=== PATIENT | male | born 1960 | race Caucasian/White ===

== ENCOUNTER 2020-12-05 20:08 | Inpatient (IN) | payer OTHER, MEDICAID ==
[2020-12-05] MEDS ORDERED: Aspirin Chewable 81 MG TAB ONE (20:56)
[2020-12-05] MEDS ORDERED: Nitroglycerin 2% Ointment 1 INCH/1 GM Packet ONE (20:57)
[2020-12-05] MEDS ORDERED: Lidocaine Viscous Sol 2% 15 ml UD Cup ONE (22:38)
[2020-12-05] MEDS ORDERED: Mag-Al Plus 1200 MG/1200 MG/120 MG/30 ML UDCUP ONE (22:38)
[2020-12-05] MEDS ORDERED: Guaifenesin DM 100-10/5 ML UDCUP PO PRN (23:58)
[2020-12-05] MEDS ORDERED: Senokot S 8.6-50 MG TAB PO PRN (23:58)
[2020-12-05] MEDS ORDERED: Calcium Carbonate 500 MG ChewTAB PO PRN (23:58)
[2020-12-06] MEDS ORDERED: Nitroglycerin 2% Ointment 1 INCH/1 GM Packet TOP PRN
[2020-12-06] MEDS ORDERED: Nitroglycerin 0.4 MG TAB (25 Tab Bottle) SL PRN (00:04)
[2020-12-06] MEDS ORDERED: Dextrose 5% in Water 1,000 ML IV PRN (00:05)
[2020-12-06] MEDS ORDERED: Dextrose 50% Abboject 50 ML SYRINGE SLOW IVP PRN (00:05)
[2020-12-06 02:01] VITALS: BMI 21.6
[2020-12-06] MEDS ORDERED: Pantoprazole 40 MG VIAL ONE (02:03)
[2020-12-06] MEDS: Morphine 2 MG/ML VIAL SLOW IVP PRN ×4 (02:05→22:21)
[2020-12-06] MEDS: Pantoprazole 40 MG VIAL IVP SCH ×2 (02:09→13:15)
[2020-12-06] MEDS: HYDROcodone/Acetaminophen 5/325 mg Tablet PO PRN ×3 (04:20→20:59)
[2020-12-06 04:56] LABS: %Basophils 0.7 % (0.0-2.0); %Eosinophils 0.7 % (0.0-6.0); %Lymphocytes 18.3 % (18.0-47.0); %Monocytes 8.2 % (0.0-10.0); %Neutrophils 71.9 % (40.0-75.0); Hemoglobin 6.5 g/dL (13.5-17.5); Platelet Count 116 10x3/uL (150-450); RBC Distribution Width 20.2 % (11.5-14.5); Red Blood Cell (RBC) Count 2.46 10x6/uL (4.32-5.72); White Blood Cell (WBC) Count 5.5 10x3/uL (3.5-10.5)
[2020-12-06 04:59] LABS: Anion Gap 13 mmol/L (10-20); BUN (Urea Nitrogen) 9 mg/dL (8.4-25.7); Calc. Creatinine Clearance 79 mL/min (70-130); Carbon Dioxide 23 mmol/L (23-31); Chloride 105 mmol/L (98-107); Potassium 3.8 mmol/L (3.5-5.1); Sodium 137 mmol/L (136-145)
[2020-12-06 05:00] LABS: Albumin 2.8 g/dL (3.4-4.8); Bilirubin, Total 1.4 mg/dL (0.2-1.2); Calcium 8.7 mg/dL (7.8-10.44); Globulin 3.4 g/dL (2.4-3.5); Glucose 155 mg/dL (80-115); Protein, Total 6.2 g/dL (5.8-8.1)
[2020-12-06 05:01] LABS: ALT (SGPT) 111 U/L (8-55); AST (SGOT) 117 U/L (5-34); Alkaline Phosphatase 1304 U/L (40-110); Lipase 14 U/L (8-78)
[2020-12-06 05:09] LABS: #Eosinphils 0.1 10x3/uL (0.0-0.5); #Monocytes 0.3 10x3/uL (0.0-1.1); #Neutrophils 2.6 10x3/uL (1.5-8.4); %Basophils 0.7 % (0.0-2.0); %Eosinophils 1.4 % (0.0-6.0); %Lymphocytes 26.7 % (18.0-47.0); %Monocytes 8.2 % (0.0-10.0); %Neutrophils 62.5 % (40.0-75.0); Hemoglobin 6.1 g/dL (13.5-17.5); Mean Corpuscular HGB CONC 32.1 g/dL (32.0-36.0); Mean Corpuscular Hemoglobin 26.1 pg (27.0-33.0); Mean Corpuscular Volume 81.2 fl (81.2-95.1); Platelet Count 103 10x3/uL (150-450); RBC Distribution Width 20.2 % (11.5-14.5); Red Blood Cell (RBC) Count 2.34 10x6/uL (4.32-5.72); White Blood Cell (WBC) Count 4.2 10x3/uL (3.5-10.5)
[2020-12-06 05:15] LABS: PTT 23.9 sec (22.0-33.0); Prothrombin Time 11.2 sec (9.5-12.1)
[2020-12-06 05:25] LABS: ALT (SGPT) 112 U/L (8-55); AST (SGOT) 117 U/L (5-34); Albumin 2.6 g/dL (3.4-4.8); Alkaline Phosphatase 1211 U/L (40-110); Anion Gap 11 mmol/L (10-20); BUN (Urea Nitrogen) 11 mg/dL (8.4-25.7); Bilirubin, Total 1.2 mg/dL (0.2-1.2); Calc. Creatinine Clearance 87 mL/min (70-130); Calcium 8.5 mg/dL (7.8-10.44); Carbon Dioxide 25 mmol/L (23-31); Cardiac Risk 2.3 (Less than 4.5); Chloride 108 mmol/L (98-107); Cholesterol 120 mg/dl (< 200 Desired); Globulin 3.1 g/dL (2.4-3.5); Glucose 78 mg/dL (80-115); HDL Cholesterol 52 mg/dL (>60 Neg Risk); LDL Cholesterol, Calculated 61 mg/dL; Potassium 3.2 mmol/L (3.5-5.1); Protein, Total 5.7 g/dL (5.8-8.1); Sodium 141 mmol/L (136-145); Triglycerides 36 mg/dL (Less than 150)
[2020-12-06 05:59] LABS: Iron 23 ug/dL (65-175); Iron Binding Capacity, Total 339 mcg/dL (261-462)
[2020-12-06 07:22] LABS: Amphetamine Not Detected (NotDetected); Barbiturates Screen Not Detected (NotDetected); Benzodiazepine Screen Not Detected (NotDetected); Cocaine Metabolite Screen Not Detected (NotDetected); Methadone Not Detected (NotDetected); Methamphetamine Not Detected (NotDetected); Opiate Screen Detected (NotDetected); Oxycodone Screen Not Detected (NotDetected); Phencyclidine (PCP) Not Detected (NotDetected); THC/Cannabinoid Screen Not Detected (NotDetected); Tricyclic Screen Not Detected (NotDetected)
[2020-12-06] MEDS: Atenolol 25 MG TAB PO SCH (10:42)
[2020-12-06] MEDS: Aspirin 81 mg Enteric Coated Tablet PO SCH (10:43)
[2020-12-06] MEDS: metFORMIN 500 MG TAB PO SCH ×2 (10:43→17:31)
[2020-12-06] MEDS: Amlodipine 10 MG TAB PO SCH (10:43)
[2020-12-06] MEDS: Pancrelipase DR 12,000 1 CAP PO SCH ×3 (10:43→17:31)
[2020-12-06 14:30] LABS: Glucose 133 mg/dL (80-115)
[2020-12-06 14:34] LABS: #Basophils 0.1 10x3/uL (0.0-0.2); #Eosinphils 0.1 10x3/uL (0.0-0.5); #Monocytes 0.4 10x3/uL (0.0-1.1); #Neutrophils 3.5 10x3/uL (1.5-8.4); %Basophils 1.4 % (0.0-2.0); %Eosinophils 1.2 % (0.0-6.0); %Lymphocytes 21.7 % (18.0-47.0); %Monocytes 8.5 % (0.0-10.0); %Neutrophils 66.8 % (40.0-75.0); Hemoglobin 7.5 g/dL (13.5-17.5); Mean Corpuscular HGB CONC 31.5 g/dL (32.0-36.0); Mean Corpuscular Hemoglobin 26.8 pg (27.0-33.0); Mean Platelet Volume 10.9 fl (7.4-10.4); Platelet Count 106 10x3/uL (150-450); RBC Distribution Width 19.5 % (11.5-14.5); White Blood Cell (WBC) Count 5.2 10x3/uL (3.5-10.5)
[2020-12-06 18:57] LABS: SARS-CoV-2 PCR by NAA Not Detected (NotDetected)
[2020-12-06] MEDS: Lisinopril 20 MG TAB PO SCH (20:57)
[2020-12-07] MEDS: Pantoprazole 40 MG VIAL IVP SCH ×2 (01:42→14:12)
[2020-12-07] MEDS: HYDROcodone/Acetaminophen 5/325 mg Tablet PO PRN ×2 (01:42→05:02)
[2020-12-07] MEDS: Morphine 2 MG/ML VIAL SLOW IVP PRN ×3 (04:58→21:09)
[2020-12-07 06:52] LABS: #Basophils 0.1 10x3/uL (0.0-0.2); #Eosinphils 0.1 10x3/uL (0.0-0.5); #Monocytes 1.1 10x3/uL (0.0-1.1); #Neutrophils 11.9 10x3/uL (1.5-8.4); %Basophils 0.4 % (0.0-2.0); %Eosinophils 0.4 % (0.0-6.0); %Lymphocytes 5.8 % (18.0-47.0); %Monocytes 8.1 % (0.0-10.0); %Neutrophils 84.9 % (40.0-75.0); Hemoglobin 9.1 g/dL (13.5-17.5); Mean Corpuscular HGB CONC 32.2 g/dL (32.0-36.0); Mean Corpuscular Hemoglobin 27.5 pg (27.0-33.0); Mean Corpuscular Volume 85.5 fl (81.2-95.1); Mean Platelet Volume 11.2 fl (7.4-10.4); Platelet Count 124 10x3/uL (150-450); RBC Distribution Width 19.2 % (11.5-14.5); Red Blood Cell (RBC) Count 3.31 10x6/uL (4.32-5.72); White Blood Cell (WBC) Count 14.1 10x3/uL (3.5-10.5)
[2020-12-07] MEDS: HumaLOG 300 UNITS/3 ML VIAL SC PRN ×2 (06:58→19:08)
[2020-12-07] MEDS: Acetaminophen 325 MG TAB PO PRN (06:59)
[2020-12-07 07:10] LABS: ALT (SGPT) 114 U/L (8-55); AST (SGOT) 114 U/L (5-34); Albumin 2.7 g/dL (3.4-4.8); Alkaline Phosphatase 1427 U/L (40-110); Anion Gap 14 mmol/L (10-20); BUN (Urea Nitrogen) 13 mg/dL (8.4-25.7); Bilirubin, Total 2.7 mg/dL (0.2-1.2); Calc. Creatinine Clearance 80 mL/min (70-130); Calcium 8.1 mg/dL (7.8-10.44); Carbon Dioxide 21 mmol/L (23-31); Chloride 109 mmol/L (98-107); Globulin 3.2 g/dL (2.4-3.5); Glucose 163 mg/dL (80-115); Potassium 4.7 mmol/L (3.5-5.1); Protein, Total 5.9 g/dL (5.8-8.1); Sodium 139 mmol/L (136-145)
[2020-12-07 09:09] LABS: Bilirubin Neg (Negative); Blood, Urine Negative (Negative); Clarity Clear (Clear); Glucose, Urine (Dipstick) Normal (Negative); Ketone, Urine 15 mg/dL (Negative); Leukocyte Negative (Negative); Nitrite Negative (Negative); Protein, Urine (Dipstick) Negative (Neg-Trace)
[2020-12-07] MEDS ORDERED: Nitroglycerin 50 MG/250 ML BOT 250 ML ONE (09:13)
[2020-12-07] MEDS: Atenolol 25 MG TAB PO SCH (09:13)
[2020-12-07] MEDS ORDERED: Lidocaine 1% (PF) 30 ML VIAL ONE (09:13)
[2020-12-07] MEDS ORDERED: Bivalirudin 250 MG VIAL ONE (09:13)
[2020-12-07] MEDS ORDERED: Heparin 10,000 UNITS/ 10 ML VIAL ONE (09:13)
[2020-12-07] MEDS: Pancrelipase DR 12,000 1 CAP PO SCH ×3 (09:13→18:35)
[2020-12-07] MEDS ORDERED: Adenosine 6 MG/2 ML VIAL ONE (09:13)
[2020-12-07] MEDS ORDERED: Fentanyl 250 MCG/5 ML VIAL ONE (09:14)
[2020-12-07] MEDS: Amlodipine 10 MG TAB PO SCH (09:14)
[2020-12-07] MEDS: cefTRIAXone\\ROCEPHIN 2 GM in Sodium Chloride 0.9% 100 ML IVPB SCH (09:14)
[2020-12-07] MEDS: Aspirin 81 mg Enteric Coated Tablet PO SCH (09:14)
[2020-12-07] MEDS ORDERED: Verapamil 5 MG/2 ML VIAL ONE (09:15)
[2020-12-07] MEDS ORDERED: Midazolam HCl 5 mg/5 ml Vial ONE (09:15)
[2020-12-07] MEDS ORDERED: Sodium Chloride 0.9% 1,000 ML ONE (09:15)
[2020-12-07 09:19] LABS: Bacteria/HPF None Seen HPF (None Seen); RBC/HPF None Seen HPF (0-3); Squamous Epithelial 0-3 HPF (0-3); WBC/HPF None Seen HPF (0-3)
[2020-12-07] MEDS ORDERED: Communication Order-Pharmacy FS SCH (09:30)
[2020-12-07] MEDS: metFORMIN 500 MG TAB PO SCH (09:35)
[2020-12-07] MEDS ORDERED: Nitroglycerin 0.4 MG TAB (25 Tab Bottle) SL PRN (10:35)
[2020-12-07] MEDS ORDERED: Sodium Chloride 0.9% 200 ML IV PRN (10:35)
[2020-12-07 12:48] LABS: Hemoglobin 8.9 g/dL (13.5-17.5)
[2020-12-07 13:46] LABS: #Monocytes 0.5 10x3/uL (0.0-1.1); #Neutrophils 3.9 10x3/uL (1.5-8.4)
[2020-12-07] MEDS: Acetaminophen/Codeine 30-300mg Tablet PO PRN ×2 (14:42→18:43)
[2020-12-07] MEDS: Ondansetron PF 4 MG/2 ML Vial IVP PRN (16:14)
[2020-12-07] MEDS ORDERED: GoLYTELY 4,000 ml Bottle PO SCH (19:45)
[2020-12-08] MEDS: Pantoprazole 40 MG VIAL IVP SCH ×2 (00:45→14:39)
[2020-12-08] MEDS: Lisinopril 20 MG TAB PO SCH ×2 (01:23→21:27)
[2020-12-08] MEDS: Morphine 2 MG/ML VIAL SLOW IVP PRN ×3 (02:49→16:27)
[2020-12-08 06:27] LABS: #Basophils 0.1 10x3/uL (0.0-0.2); #Eosinphils 0.1 10x3/uL (0.0-0.5); #Monocytes 0.8 10x3/uL (0.0-1.1); #Neutrophils 6.9 10x3/uL (1.5-8.4); %Basophils 0.5 % (0.0-2.0); %Eosinophils 0.8 % (0.0-6.0); %Lymphocytes 15.2 % (18.0-47.0); %Monocytes 8.2 % (0.0-10.0); %Neutrophils 74.9 % (40.0-75.0); Hemoglobin 8.7 g/dL (13.5-17.5); Mean Corpuscular HGB CONC 31.9 g/dL (32.0-36.0); Mean Corpuscular Hemoglobin 26.9 pg (27.0-33.0); Mean Corpuscular Volume 84.3 fl (81.2-95.1); Mean Platelet Volume 11.6 fl (7.4-10.4); Platelet Count 119 10x3/uL (150-450); RBC Distribution Width 19.2 % (11.5-14.5); Red Blood Cell (RBC) Count 3.24 10x6/uL (4.32-5.72); White Blood Cell (WBC) Count 9.3 10x3/uL (3.5-10.5)
[2020-12-08 06:30] LABS: ALT (SGPT) 91 U/L (8-55); AST (SGOT) 71 U/L (5-34); Albumin 2.5 g/dL (3.4-4.8); Alkaline Phosphatase 1223 U/L (40-110); Bilirubin, Direct 1.3 mg/dL (0.1-0.3); Bilirubin, Total 1.5 mg/dL (0.2-1.2); Protein, Total 5.7 g/dL (5.8-8.1)
[2020-12-08 06:31] LABS: Anion Gap 13 mmol/L (10-20); BUN (Urea Nitrogen) 13 mg/dL (8.4-25.7); Calc. Creatinine Clearance 80 mL/min (70-130); Calcium 7.6 mg/dL (7.8-10.44); Carbon Dioxide 24 mmol/L (23-31); Chloride 108 mmol/L (98-107); Glucose 201 mg/dL (80-115); Potassium 4.1 mmol/L (3.5-5.1); Sodium 141 mmol/L (136-145)
[2020-12-08] MEDS: HumaLOG 300 UNITS/3 ML VIAL SC PRN (06:36)
[2020-12-08] MEDS: Acetaminophen/Codeine 30-300mg Tablet PO PRN ×2 (06:39→21:31)
[2020-12-08] MEDS: Atenolol 25 MG TAB PO SCH (09:40)
[2020-12-08] MEDS: cefTRIAXone\\ROCEPHIN 2 GM in Sodium Chloride 0.9% 100 ML IVPB SCH (09:41)
[2020-12-08] MEDS: Amlodipine 10 MG TAB PO SCH (11:48)
[2020-12-08] MEDS: Pancrelipase DR 12,000 1 CAP PO SCH ×3 (11:48→16:54)
[2020-12-08] MEDS: Aspirin 81 mg Enteric Coated Tablet PO SCH (11:48)
[2020-12-08] MEDS ORDERED: PROPOFOL 0 ML ONE ×2 (13:24→13:25)
[2020-12-08] MEDS ORDERED: Ondansetron PF 4 MG/2 ML Vial ONE (13:25)
[2020-12-08] MEDS ORDERED: Ondansetron HCl/PF 4 MG/2 ML Vial IVP PRN (15:06)
[2020-12-08] MEDS ORDERED: Promethazine HCl 25 MG/ML VIAL SLOW IVP PRN (15:06)
[2020-12-08] MEDS ORDERED: Promethazine HCl 25 MG/ML VIAL IM PRN (15:06)
[2020-12-08] MEDS ORDERED: PROPOFOL 20 ML ONE (15:12)
[2020-12-08] MEDS ORDERED: GoLYTELY 4,000 ml Bottle PO SCH (16:00)
[2020-12-08] MEDS ORDERED: Ezetimibe 10 MG TAB PO SCH (20:00)
[2020-12-09] MEDS: Pantoprazole 40 MG VIAL IVP SCH ×2 (01:20→12:32)
[2020-12-09] MEDS: Acetaminophen/Codeine 30-300mg Tablet PO PRN ×2 (01:20→12:31)
[2020-12-09 06:42] LABS: ALT (SGPT) 98 U/L (8-55); AST (SGOT) 103 U/L (5-34); Albumin 2.4 g/dL (3.4-4.8); Alkaline Phosphatase 1240 U/L (40-110); Bilirubin, Direct 0.8 mg/dL (0.1-0.3); Protein, Total 5.4 g/dL (5.8-8.1)
[2020-12-09 06:47] LABS: Anion Gap 12 mmol/L (10-20); BUN (Urea Nitrogen) 9 mg/dL (8.4-25.7); Calc. Creatinine Clearance 108 mL/min (70-130); Calcium 7.5 mg/dL (7.8-10.44); Carbon Dioxide 21 mmol/L (23-31); Chloride 111 mmol/L (98-107); Glucose 164 mg/dL (80-115); Potassium 4.6 mmol/L (3.5-5.1); Sodium 139 mmol/L (136-145)
[2020-12-09 06:51] LABS: #Basophils 0.1 10x3/uL (0.0-0.2); #Eosinphils 0.1 10x3/uL (0.0-0.5); #Monocytes 0.6 10x3/uL (0.0-1.1); %Eosinophils 1.5 % (0.0-6.0); %Lymphocytes 20.2 % (18.0-47.0); %Neutrophils 68.8 % (40.0-75.0); Hemoglobin 8.2 g/dL (13.5-17.5); Mean Corpuscular HGB CONC 31.9 g/dL (32.0-36.0); Mean Corpuscular Hemoglobin 26.6 pg (27.0-33.0); Mean Corpuscular Volume 83.4 fl (81.2-95.1); Mean Platelet Volume 11.5 fl (7.4-10.4); Platelet Count 114 10x3/uL (150-450); RBC Distribution Width 19.8 % (11.5-14.5); Red Blood Cell (RBC) Count 3.08 10x6/uL (4.32-5.72); White Blood Cell (WBC) Count 7.3 10x3/uL (3.5-10.5)
[2020-12-09] MEDS: Pancrelipase DR 12,000 1 CAP PO SCH ×3 (08:34→19:02)
[2020-12-09] MEDS: Ezetimibe 10 MG TAB PO SCH (08:34)
[2020-12-09] MEDS: Aspirin 81 mg Enteric Coated Tablet PO SCH (08:34)
[2020-12-09] MEDS: cefTRIAXone\\ROCEPHIN 2 GM in Sodium Chloride 0.9% 100 ML IVPB SCH (08:35)
[2020-12-09] MEDS: Acetaminophen 325 MG TAB PO PRN (08:50)
[2020-12-09] MEDS: Atenolol 25 MG TAB PO SCH (09:48)
[2020-12-09] MEDS: Amlodipine 10 MG TAB PO SCH (09:48)
[2020-12-09] MEDS: Morphine 2 MG/ML VIAL SLOW IVP PRN ×2 (09:49→18:32)
[2020-12-09] MEDS ORDERED: Fioricet 325/50/40 mg Tablet PO PRN (12:51)
[2020-12-09] MEDS ORDERED: PROPOFOL 20 ML ONE ×2 (16:15→17:22)
[2020-12-09] MEDS ORDERED: Lidocaine 2% MPF 10 ML AMP (For Epidural Use) ONE (16:48)
[2020-12-09] MEDS ORDERED: PHENYLEPHRINE-NS 100 MCG/ML 10 ML SYRINGE ONE (17:04)
[2020-12-09] MEDS ORDERED: ePHEDrine 50 MG/ML VIAL ONE (17:12)
[2020-12-10] MEDS: Lisinopril 20 MG TAB PO SCH (00:26)
[2020-12-10] MEDS: Morphine 2 MG/ML VIAL SLOW IVP PRN ×2 (00:27→08:22)
[2020-12-10] MEDS: Pantoprazole 40 MG VIAL IVP SCH (00:45)
[2020-12-10 05:59] LABS: #Basophils 0.1 10x3/uL (0.0-0.2); #Eosinphils 0.1 10x3/uL (0.0-0.5); #Monocytes 0.8 10x3/uL (0.0-1.1); #Neutrophils 5.8 10x3/uL (1.5-8.4); %Basophils 1.1 % (0.0-2.0); %Eosinophils 1.7 % (0.0-6.0); %Lymphocytes 18.5 % (18.0-47.0); %Monocytes 9.9 % (0.0-10.0); %Neutrophils 68.4 % (40.0-75.0); Hemoglobin 8.4 g/dL (13.5-17.5); Mean Corpuscular HGB CONC 31.8 g/dL (32.0-36.0); Mean Corpuscular Hemoglobin 26.9 pg (27.0-33.0); Mean Corpuscular Volume 84.6 fl (81.2-95.1); Mean Platelet Volume 11.3 fl (7.4-10.4); Platelet Count 128 10x3/uL (150-450); RBC Distribution Width 19.8 % (11.5-14.5); Red Blood Cell (RBC) Count 3.12 10x6/uL (4.32-5.72); White Blood Cell (WBC) Count 8.4 10x3/uL (3.5-10.5)
[2020-12-10 06:06] LABS: Anion Gap 9 mmol/L (10-20); BUN (Urea Nitrogen) 7 mg/dL (8.4-25.7); Calc. Creatinine Clearance 109 mL/min (70-130); Calcium 8.2 mg/dL (7.8-10.44); Carbon Dioxide 25 mmol/L (23-31); Chloride 111 mmol/L (98-107); Glucose 69 mg/dL (80-115); Potassium 4.2 mmol/L (3.5-5.1); Sodium 141 mmol/L (136-145)
[2020-12-10 06:09] LABS: ALT (SGPT) 71 U/L (8-55); AST (SGOT) 41 U/L (5-34); Albumin 2.4 g/dL (3.4-4.8); Alkaline Phosphatase 1044 U/L (40-110); Bilirubin, Direct 0.5 mg/dL (0.1-0.3); Bilirubin, Total 0.7 mg/dL (0.2-1.2); Protein, Total 5.4 g/dL (5.8-8.1)
[2020-12-10] MEDS: cefTRIAXone\\ROCEPHIN 2 GM in Sodium Chloride 0.9% 100 ML IVPB SCH (08:22)
[2020-12-10] MEDS: Aspirin 81 mg Enteric Coated Tablet PO SCH (08:30)
[2020-12-10] MEDS: Atenolol 25 MG TAB PO SCH (08:30)
[2020-12-10] MEDS: Amlodipine 10 MG TAB PO SCH (08:30)
[2020-12-10] MEDS: Ezetimibe 10 MG TAB PO SCH (08:30)
[2020-12-10] MEDS: Pancrelipase DR 12,000 1 CAP PO SCH (08:30)
[2020-12-10] MEDS: Ondansetron PF 4 MG/2 ML Vial IVP PRN (08:34)
[2020-12-10 12:04] VITALS: BP 133/70; TEMP 98
== END 2020-12-10 12:25 | disposition home or self-care (01) | DRG 287 ==
LOC: CSHERS 20:08 → CSHTELE 23:58 → OBSVTOIN 12-06 17:02
PROVIDERS: ADMIT Student in an Organized Health Care Education/Training Program; ATTEND Internal Medicine
PROC: 30233N1 Transfusion of Nonautologous Red Blood Cells into Peripheral Vein, Percutaneous Approach (ICD-10-PCS; principal; 2020-12-06)
PROC: 4A023N7 Measurement of Cardiac Sampling and Pressure, Left Heart, Percutaneous Approach (ICD-10-PCS; 2020-12-07)
PROC: B2111ZZ Fluoroscopy of Multiple Coronary Arteries using Low Osmolar Contrast (ICD-10-PCS; 2020-12-07)
PROC: B2161ZZ Fluoroscopy of Right and Left Heart using Low Osmolar Contrast (ICD-10-PCS; 2020-12-07)
PROC: B240ZZ3 Ultrasonography of Single Coronary Artery, Intravascular (ICD-10-PCS; 2020-12-07)
PROC: 0DB68ZX Excision of Stomach, Via Natural or Artificial Opening Endoscopic, Diagnostic (ICD-10-PCS; 2020-12-08)
PROC: 0DJD8ZZ Inspection of Lower Intestinal Tract, Via Natural or Artificial Opening Endoscopic (ICD-10-PCS; 2020-12-08)
PROC: 0DBM8ZZ Excision of Descending Colon, Via Natural or Artificial Opening Endoscopic (ICD-10-PCS; 2020-12-09)
PROC: 0DBN8ZZ Excision of Sigmoid Colon, Via Natural or Artificial Opening Endoscopic (ICD-10-PCS; 2020-12-09)
DX: I25.110 Atherosclerotic heart disease of native coronary artery with unstable angina pectoris (principal); K86.1 Other chronic pancreatitis; K83.09 Other cholangitis; R64 Cachexia; I85.00 Esophageal varices without bleeding; Z20.822 Contact with and (suspected) exposure to COVID-19; E78.5 Hyperlipidemia, unspecified; I10 Essential (primary) hypertension; K21.9 Gastro-esophageal reflux disease without esophagitis; F17.210 Nicotine dependence, cigarettes, uncomplicated; K20.80 Other esophagitis without bleeding; K25.9 Gastric ulcer, unspecified as acute or chronic, without hemorrhage or perforation; T85.898A Other specified complication of other internal prosthetic devices, implants and grafts, initial encounter; D69.6 Thrombocytopenia, unspecified; D50.9 Iron deficiency anemia, unspecified; F43.10 Post-traumatic stress disorder, unspecified; E11.65 Type 2 diabetes mellitus with hyperglycemia; R79.89 Other specified abnormal findings of blood chemistry; Z79.899 Other long term (current) drug therapy; Z87.11 Personal history of peptic ulcer disease; Z86.010 Personal history of colon polyps; Z71.6 Tobacco abuse counseling; Z95.5 Presence of coronary angioplasty implant and graft; Z88.0 Allergy status to penicillin; Z88.8 Allergy status to other drugs, medicaments and biological substances; Z68.21 Body mass index [BMI] 21.0-21.9, adult
CPT/HCPCS: 36415; 36416; 36430; 71045; 74018; 74183; 76705; 80048; 80053; 80061; 80076; 80306; 81001; 82105; 82607; 82728; 82746; 83540; 83550; 83690; 84484; 85025; 85610; 85730; 86850; 86900; 86901; 87040; 87635; 88305; 88312; 92978; 93005; 93306; 93458; 94760; 96374; 96376; 99152; 99153; C1753; C1887; C9113; G0378; J0153; J0583; J0696; J1644; J1815; J2001; J2250; J2270; J2405; J2704; J3010; J3490; J7030; J7050; P9016; U0003; U0005

== ENCOUNTER 2020-12-18 12:46 | Emergency (ER) | payer OTHER, MEDICAID ==
[2020-12-18] MEDS ORDERED: Morphine 4 MG/ML VIAL ONE ×2 (14:03→16:23)
[2020-12-18 14:34] LABS: #Monocytes 0.3 10x3/uL (0.0-1.1); #Neutrophils 2.9 10x3/uL (1.5-8.4); %Lymphocytes 17.9 % (18.0-47.0); %Monocytes 8.3 % (0.0-10.0); %Neutrophils 71.3 % (40.0-75.0); Hemoglobin 7.5 g/dL (13.5-17.5); Mean Corpuscular HGB CONC 30.6 g/dL (32.0-36.0); Mean Corpuscular Hemoglobin 26.5 pg (27.0-33.0); Mean Corpuscular Volume 86.6 fl (81.2-95.1); Mean Platelet Volume 11.5 fl (7.4-10.4); Platelet Count 79 10x3/uL (150-450); RBC Distribution Width 19.2 % (11.5-14.5); Red Blood Cell (RBC) Count 2.83 10x6/uL (4.32-5.72); White Blood Cell (WBC) Count 4.1 10x3/uL (3.5-10.5)
[2020-12-18] MEDS ORDERED: Promethazine HCl 25 MG/ML VIAL ONE (14:38)
[2020-12-18 14:54] LABS: Hypochromia SLIGHT = 6-15 cells (100X) (0-5/hpf)
[2020-12-18 14:55] LABS: Platelet Morphology Comment Appears Decreased
[2020-12-18 14:56] LABS: ALT (SGPT) 108 U/L (8-55); AST (SGOT) 158 U/L (5-34); Albumin 2.8 g/dL (3.4-4.8); Alkaline Phosphatase 1284 U/L (40-110); Anion Gap 13 mmol/L (10-20); BUN (Urea Nitrogen) 12 mg/dL (8.4-25.7); Bilirubin, Total 1.5 mg/dL (0.2-1.2); Calc. Creatinine Clearance 0 mL/min (70-130); Calcium 9.3 mg/dL (7.8-10.44); Carbon Dioxide 23 mmol/L (23-31); Chloride 108 mmol/L (98-107); Globulin 3.4 g/dL (2.4-3.5); Glucose 102 mg/dL (80-115); Lipase 22 U/L (8-78); Potassium 3.8 mmol/L (3.5-5.1); Protein, Total 6.2 g/dL (5.8-8.1); Sodium 140 mmol/L (136-145)
[2020-12-18] MEDS ORDERED: Mag-Al Plus 1200 MG/1200 MG/120 MG/30 ML UDCUP ONE (15:36)
[2020-12-18] MEDS ORDERED: Lidocaine Viscous Sol 2% 15 ml UD Cup ONE (15:36)
[2020-12-18 16:56] LABS: Bilirubin 1+ (Negative); Blood, Urine Negative (Negative); Clarity Clear (Clear); Glucose, Urine (Dipstick) Normal (Negative); Ketone, Urine Negative (Negative); Leukocyte 25 (Negative); Nitrite Negative (Negative); Protein, Urine (Dipstick) Negative (Neg-Trace); Specific Gravity, Urine 1.015 (1.002-1.036)
[2020-12-18 17:05] LABS: Bacteria/HPF Rare-Few HPF (None Seen); Calcium Oxalate Crystals 1+ HPF (None Seen); RBC/HPF 0-3 HPF (0-3); Squamous Epithelial 0-3 HPF (0-3); WBC/HPF 0-3 HPF (0-3)
== END 2020-12-18 16:40 | disposition home or self-care (01) ==
LOC: CSHERS 12:46
DX: K83.1 Obstruction of bile duct (principal); D64.9 Anemia, unspecified; E11.9 Type 2 diabetes mellitus without complications; I25.2 Old myocardial infarction; F17.210 Nicotine dependence, cigarettes, uncomplicated; Z79.899 Other long term (current) drug therapy
CPT/HCPCS: 80053; 81003; 81015; 83690; 84484; 85025; 96365; 96375; 96376; J2270; J2550

== ENCOUNTER 2021-01-02 17:18 | Emergency (ER) | payer OTHER, MEDICAID ==
[2021-01-02] MEDS ORDERED: Morphine 4 MG/ML VIAL ONE ×4 (18:42→23:08)
[2021-01-02] MEDS ORDERED: Ondansetron PF 4 MG/2 ML Vial ONE (18:42)
[2021-01-02 18:50] LABS: #Basophils 0.1 10x3/uL (0.0-0.2); #Monocytes 0.4 10x3/uL (0.0-1.1); #Neutrophils 4.2 10x3/uL (1.5-8.4); %Basophils 0.9 % (0.0-2.0); %Eosinophils 0.7 % (0.0-6.0); %Lymphocytes 17.1 % (18.0-47.0); %Monocytes 7.2 % (0.0-10.0); %Neutrophils 73.9 % (40.0-75.0); Hemoglobin 8.5 g/dL (13.5-17.5); Mean Corpuscular HGB CONC 31.5 g/dL (32.0-36.0); Mean Corpuscular Hemoglobin 26.7 pg (27.0-33.0); Mean Corpuscular Volume 84.9 fl (81.2-95.1); Mean Platelet Volume 10.2 fl (7.4-10.4); Platelet Count 102 10x3/uL (150-450); RBC Distribution Width 18.3 % (11.5-14.5); Red Blood Cell (RBC) Count 3.18 10x6/uL (4.32-5.72); White Blood Cell (WBC) Count 5.7 10x3/uL (3.5-10.5)
[2021-01-02] MEDS ORDERED: Lidocaine Viscous Sol 2% 15 ml UD Cup ONE (18:54)
[2021-01-02] MEDS ORDERED: Mag-Al Plus 1200 MG/1200 MG/120 MG/30 ML UDCUP ONE (18:54)
[2021-01-02 18:57] LABS: ALT (SGPT) 65 U/L (8-55); AST (SGOT) 52 U/L (5-34); Albumin 2.8 g/dL (3.4-4.8); Alkaline Phosphatase 1331 U/L (40-110); Anion Gap 15 mmol/L (10-20); BUN (Urea Nitrogen) 11 mg/dL (8.4-25.7); Bilirubin, Total 0.8 mg/dL (0.2-1.2); Calc. Creatinine Clearance 0 mL/min (70-130); Calcium 8.6 mg/dL (7.8-10.44); Carbon Dioxide 26 mmol/L (23-31); Chloride 106 mmol/L (98-107); Globulin 3.7 g/dL (2.4-3.5); Lipase 27 U/L (8-78); Potassium 3.2 mmol/L (3.5-5.1); Protein, Total 6.5 g/dL (5.8-8.1); Sodium 144 mmol/L (136-145)
[2021-01-02 19:07] LABS: Glucose 53 mg/dL (80-115)
[2021-01-02] MEDS ORDERED: Dextrose 50% Abboject 50 ML SYRINGE ONE (19:17)
[2021-01-02 20:21] LABS: Bilirubin Neg (Negative); Blood, Urine Negative (Negative); Clarity Clear (Clear); Glucose, Urine (Dipstick) 50 mg/dL (Negative); Ketone, Urine Negative (Negative); Leukocyte Negative (Negative); Nitrite Negative (Negative); Protein, Urine (Dipstick) Negative (Neg-Trace); Specific Gravity, Urine 1.015 (1.002-1.036)
== END 2021-01-03 00:22 | disposition short-term general hospital (02) ==
LOC: CSHERS 17:18
DX: T85.590A Other mechanical complication of bile duct prosthesis, initial encounter (principal); K86.1 Other chronic pancreatitis; I10 Essential (primary) hypertension; E11.9 Type 2 diabetes mellitus without complications; I25.2 Old myocardial infarction; F17.210 Nicotine dependence, cigarettes, uncomplicated; Z79.899 Other long term (current) drug therapy
CPT/HCPCS: 36415; 36416; 71045; 74177; 80053; 81003; 83605; 83690; 84484; 85025; 93005; 96374; 96375; 96376; J2270; J2405

== ENCOUNTER 2021-07-01 11:54 | Emergency (ER) | payer OTHER, MEDICAID ==
[2021-07-01] MEDS ORDERED: Morphine 4 MG/ML VIAL ONE (13:57)
[2021-07-01 14:00] LABS: Hemoglobin 7.2 g/dL (13.5-17.5)
== END 2021-07-01 14:40 | disposition home or self-care (01) ==
LOC: CSHERS 11:54
DX: D64.9 Anemia, unspecified (principal); M54.50 Low back pain, unspecified; E11.9 Type 2 diabetes mellitus without complications; I25.10 Atherosclerotic heart disease of native coronary artery without angina pectoris; I25.2 Old myocardial infarction; K74.60 Unspecified cirrhosis of liver; F17.210 Nicotine dependence, cigarettes, uncomplicated
CPT/HCPCS: 85014; 85018; 96372; 99284; J2270

== ENCOUNTER 2021-07-04 14:16 | Emergency (ER) | payer OTHER, MEDICAID ==
[2021-07-04 15:49] LABS: #Basophils 0.1 10x3/uL (0.0-0.2); #Eosinphils 0.1 10x3/uL (0.0-0.5); #Monocytes 0.5 10x3/uL (0.0-1.1); #Neutrophils 4.6 10x3/uL (1.5-8.4); %Basophils 0.8 % (0.0-2.0); %Lymphocytes 17.4 % (18.0-47.0); %Monocytes 7.2 % (0.0-10.0); %Neutrophils 73.1 % (40.0-75.0); Hemoglobin 7.8 g/dL (13.5-17.5); Mean Corpuscular HGB CONC 30.4 g/dL (32.0-36.0); Mean Corpuscular Hemoglobin 25.5 pg (27.0-33.0); Mean Platelet Volume 10.2 fl (7.4-10.4); Platelet Count 179 10x3/uL (150-450); RBC Distribution Width 15.1 % (11.5-14.5); Red Blood Cell (RBC) Count 3.06 10x6/uL (4.32-5.72); White Blood Cell (WBC) Count 6.3 10x3/uL (3.5-10.5)
[2021-07-04 16:04] LABS: ALT (SGPT) 103 U/L (8-55); AST (SGOT) 102 U/L (5-34); Alkaline Phosphatase 1885 U/L (40-110); Anion Gap 12 mmol/L (10-20); BUN (Urea Nitrogen) 14 mg/dL (8.4-25.7); Bilirubin, Total 0.7 mg/dL (0.2-1.2); Calc. Creatinine Clearance 0 mL/min (70-130); Calcium 9.1 mg/dL (7.8-10.44); Carbon Dioxide 25 mmol/L (23-31); Chloride 107 mmol/L (98-107); Globulin 4.4 g/dL (2.4-3.5); Glucose 424 mg/dL (80-115); Potassium 4.9 mmol/L (3.5-5.1); Protein, Total 7.4 g/dL (5.8-8.1); Sodium 139 mmol/L (136-145)
[2021-07-04] MEDS ORDERED: Morphine 4 MG/ML VIAL ONE (17:20)
[2021-07-04] MEDS ORDERED: Ondansetron PF 4 MG/2 ML Vial ONE (17:20)
[2021-07-04 18:09] LABS: Bilirubin Neg (Negative); Blood, Urine Negative (Negative); Clarity Clear (Clear); Glucose, Urine (Dipstick) >=1000 mg/dL (Negative); Ketone, Urine Negative (Negative); Leukocyte Negative (Negative); Nitrite Negative (Negative); Protein, Urine (Dipstick) Negative (Neg-Trace); Specific Gravity, Urine 1.015 (1.002-1.036); Urobilinogen Normal mg/dL (Less than 2)
== END 2021-07-04 19:31 | disposition home or self-care (01) ==
LOC: CSHERS 14:16
DX: E11.65 Type 2 diabetes mellitus with hyperglycemia (principal); D64.9 Anemia, unspecified; K92.2 Gastrointestinal hemorrhage, unspecified; M54.50 Low back pain, unspecified; G89.29 Other chronic pain; I25.2 Old myocardial infarction; I25.10 Atherosclerotic heart disease of native coronary artery without angina pectoris; K74.60 Unspecified cirrhosis of liver; F17.210 Nicotine dependence, cigarettes, uncomplicated
CPT/HCPCS: 36416; 71045; 80053; 81003; 85025; 86850; 86900; 86901; 93005; 96374; 96375; J2270; J2405

== ENCOUNTER 2021-07-24 10:43 | Inpatient (IN) | payer OTHER, MEDICAID ==
[2021-07-24] MEDS ORDERED: Ondansetron PF 4 MG/2 ML Vial ONE ×2 (11:32→13:32)
[2021-07-24] MEDS ORDERED: Morphine 4 MG/ML VIAL ONE ×2 (11:32→13:32)
[2021-07-24 12:15] LABS: #Monocytes 0.4 10x3/uL (0.0-1.1); #Neutrophils 4.4 10x3/uL (1.5-8.4); %Basophils 0.7 % (0.0-2.0); %Eosinophils 0.7 % (0.0-6.0); %Lymphocytes 12.3 % (18.0-47.0); %Monocytes 6.8 % (0.0-10.0); %Neutrophils 79.1 % (40.0-75.0); Hemoglobin 6.6 g/dL (13.5-17.5); Mean Corpuscular HGB CONC 30.4 g/dL (32.0-36.0); Mean Corpuscular Hemoglobin 24.4 pg (27.0-33.0); Mean Corpuscular Volume 80.1 fl (81.2-95.1); Mean Platelet Volume 11.8 fl (7.4-10.4); Platelet Count 116 10x3/uL (150-450); RBC Distribution Width 16.2 % (11.5-14.5); Red Blood Cell (RBC) Count 2.71 10x6/uL (4.32-5.72); White Blood Cell (WBC) Count 5.6 10x3/uL (3.5-10.5)
[2021-07-24 12:27] LABS: ALT (SGPT) 64 U/L (8-55); AST (SGOT) 70 U/L (5-34); Albumin 2.9 g/dL (3.4-4.8); Alkaline Phosphatase 1510 U/L (40-110); Anion Gap 13 mmol/L (10-20); BUN (Urea Nitrogen) 20 mg/dL (8.4-25.7); Bilirubin, Total 0.7 mg/dL (0.2-1.2); Calc. Creatinine Clearance 0 mL/min (70-130); Calcium 9.3 mg/dL (7.8-10.44); Carbon Dioxide 24 mmol/L (23-31); Chloride 108 mmol/L (98-107); Globulin 3.5 g/dL (2.4-3.5); Glucose 217 mg/dL (80-115); Lipase 51 U/L (8-78); Potassium 3.9 mmol/L (3.5-5.1); Protein, Total 6.4 g/dL (5.8-8.1); Sodium 141 mmol/L (136-145)
[2021-07-24] MEDS ORDERED: Lidocaine Viscous Sol 2% 15 ml UD Cup FS SCH (13:45)
[2021-07-24 13:50] LABS: PTT 24.1 sec (22.0-33.0); Prothrombin Time 11.2 sec (9.5-12.1)
[2021-07-24] MEDS ORDERED: HYDROmorphone 0.5 MG/0.5 ML SYRINGE ONE (13:50)
[2021-07-24] MEDS ORDERED: Morphine 4 MG/ML VIAL SLOW IVP PRN (14:09)
[2021-07-24] MEDS ORDERED: Ondansetron ODT 4 MG TAB SL PRN (14:09)
[2021-07-24 14:58] LABS: Bilirubin Neg (Negative); Blood, Urine Negative (Negative); Clarity Clear (Clear); Glucose, Urine (Dipstick) Normal (Negative); Ketone, Urine Negative (Negative); Leukocyte Negative (Negative); Nitrite Negative (Negative); Protein, Urine (Dipstick) Negative (Neg-Trace); Urobilinogen Normal mg/dL (Less than 2)
[2021-07-24 16:47] LABS: SARS-CoV-2 NAA Rapid Test Not Detected (NotDetected)
[2021-07-24] MEDS ORDERED: HumaLOG 300 UNITS/3 ML VIAL SC PRN ×2 (17:51)
[2021-07-24 17:55] VITALS: BMI 18.8
[2021-07-24] MEDS: Morphine 4 MG/ML VIAL SLOW IVP PRN ×2 (18:26→22:17)
[2021-07-24] MEDS: Ondansetron PF 4 MG/2 ML Vial IVP PRN (18:26)
[2021-07-24] MEDS: Sodium Chloride 0.9% 1,000 ML IV SCH (18:27)
[2021-07-24] MEDS: Nicotine 14 MG PATCH TD SCH (18:27)
[2021-07-24] MEDS ORDERED: hydrALAZINE 20 MG/ML VIAL SLOW IVP PRN (19:36)
[2021-07-24] MEDS ORDERED: Labetalol HCl 100 MG/20 ML VIAL SLOW IVP PRN (19:36)
[2021-07-24] MEDS ORDERED: Morphine 4 MG/ML VIAL SLOW IVP SCH (21:30)
[2021-07-24] MEDS: Dextrose 5% in Water 1,000 ML IV PRN (22:45)
[2021-07-24 23:23] LABS: Hemoglobin 7.4 g/dL (13.5-17.5)
[2021-07-25] MEDS: Ondansetron PF 4 MG/2 ML Vial IVP PRN (01:08)
[2021-07-25] MEDS: Morphine 4 MG/ML VIAL SLOW IVP PRN ×5 (01:11→21:29)
[2021-07-25] MEDS ORDERED: Promethazine HCl 12.5 MG in Sodium Chloride 0.9% 50 ML IVPB SCH (05:30)
[2021-07-25] MEDS: Sodium Chloride 0.9% 1,000 ML IV SCH ×2 (05:34→17:59)
[2021-07-25 06:00] LABS: #Basophils 0.1 10x3/uL (0.0-0.2); #Eosinphils 0.1 10x3/uL (0.0-0.5); #Monocytes 0.5 10x3/uL (0.0-1.1); #Neutrophils 3.5 10x3/uL (1.5-8.4); %Basophils 0.9 % (0.0-2.0); %Eosinophils 1.7 % (0.0-6.0); %Lymphocytes 20.1 % (18.0-47.0); %Monocytes 10.2 % (0.0-10.0); %Neutrophils 66.9 % (40.0-75.0); Hemoglobin 6.6 g/dL (13.5-17.5); Mean Corpuscular HGB CONC 31.4 g/dL (32.0-36.0); Mean Corpuscular Hemoglobin 25.6 pg (27.0-33.0); Mean Corpuscular Volume 81.4 fl (81.2-95.1); Mean Platelet Volume 11.3 fl (7.4-10.4); Platelet Count 116 10x3/uL (150-450); RBC Distribution Width 15.9 % (11.5-14.5); Red Blood Cell (RBC) Count 2.58 10x6/uL (4.32-5.72); White Blood Cell (WBC) Count 5.3 10x3/uL (3.5-10.5)
[2021-07-25 06:04] LABS: ALT (SGPT) 51 U/L (8-55); AST (SGOT) 53 U/L (5-34); Albumin 2.3 g/dL (3.4-4.8); Alkaline Phosphatase 1150 U/L (40-110); Anion Gap 9 mmol/L (10-20); BUN (Urea Nitrogen) 24 mg/dL (8.4-25.7); Bilirubin, Total 0.6 mg/dL (0.2-1.2); Calc. Creatinine Clearance 90 mL/min (70-130); Carbon Dioxide 24 mmol/L (23-31); Chloride 115 mmol/L (98-107); Globulin 3.1 g/dL (2.4-3.5); Glucose 84 mg/dL (80-115); Potassium 3.4 mmol/L (3.5-5.1); Protein, Total 5.4 g/dL (5.8-8.1); Sodium 145 mmol/L (136-145)
[2021-07-25] MEDS: Dextrose 50% Abboject 50 ML SYRINGE SLOW IVP PRN ×3 (07:05→16:10)
[2021-07-25] MEDS: Pantoprazole 40 MG VIAL IVP SCH ×2 (08:45→21:29)
[2021-07-25] MEDS: Dextrose 5% in Water 1,000 ML IV PRN (08:59)
[2021-07-25] MEDS ORDERED: Sodium Bicarbonate 2.5 MEQ/5 ML VIAL ONE (13:04)
[2021-07-25] MEDS ORDERED: Lidocaine 1% PF 5 ML VIAL ONE (13:04)
[2021-07-25] MEDS ORDERED: Succinylcholine 200 MG/10 ml SYRINGE FS ONE (14:36)
[2021-07-25] MEDS ORDERED: Fentanyl 100 MCG/2 ML VIAL ONE ×2 (14:37→15:39)
[2021-07-25] MEDS ORDERED: ePHEDrine Sulfate 50 MG/10 ML VIAL ONE (15:05)
[2021-07-25] MEDS: Nicotine 14 MG PATCH TD SCH (17:58)
[2021-07-25] MEDS ORDERED: HYDROmorphone 0.5 MG/0.5 ML SYRINGE SLOW IVP SCH (18:00)
[2021-07-26] MEDS ORDERED: diphenhydrAMINE 50 MG/ML VIAL IVP PRN (00:16)
[2021-07-26] MEDS: Morphine 4 MG/ML VIAL SLOW IVP PRN ×5 (01:34→19:23)
[2021-07-26] MEDS ORDERED: Lorazepam 2 MG/ML VIAL SLOW IVP SCH (04:15)
[2021-07-26 05:55] LABS: #Basophils 0.1 10x3/uL (0.0-0.2); #Eosinphils 0.1 10x3/uL (0.0-0.5); #Monocytes 0.7 10x3/uL (0.0-1.1); #Neutrophils 4.6 10x3/uL (1.5-8.4); %Basophils 1.1 % (0.0-2.0); %Eosinophils 1.8 % (0.0-6.0); %Lymphocytes 13.1 % (18.0-47.0); %Monocytes 10.4 % (0.0-10.0); Hemoglobin 7.3 g/dL (13.5-17.5); Mean Corpuscular HGB CONC 32.6 g/dL (32.0-36.0); Mean Corpuscular Hemoglobin 26.4 pg (27.0-33.0); Mean Corpuscular Volume 81.2 fl (81.2-95.1); Mean Platelet Volume 10.9 fl (7.4-10.4); Platelet Count 110 10x3/uL (150-450); RBC Distribution Width 15.9 % (11.5-14.5); Red Blood Cell (RBC) Count 2.76 10x6/uL (4.32-5.72); White Blood Cell (WBC) Count 6.3 10x3/uL (3.5-10.5)
[2021-07-26 06:04] LABS: ALT (SGPT) 40 U/L (8-55); AST (SGOT) 28 U/L (5-34); Albumin 2.2 g/dL (3.4-4.8); Alkaline Phosphatase 964 U/L (40-110); Anion Gap 8 mmol/L (10-20); BUN (Urea Nitrogen) 14 mg/dL (8.4-25.7); Bilirubin, Total 0.7 mg/dL (0.2-1.2); Calc. Creatinine Clearance 94 mL/min (70-130); Calcium 7.6 mg/dL (7.8-10.44); Carbon Dioxide 23 mmol/L (23-31); Chloride 113 mmol/L (98-107); Cholesterol 86 mg/dl (< 200 Desired); Glucose 163 mg/dL (80-115); HDL Cholesterol 42 mg/dL (>60 Neg Risk); LDL Cholesterol, Calculated 34 mg/dL; Magnesium 1.4 mg/dL (1.6-2.6); Phosphorus 2.3 mg/dL (2.3-4.7); Potassium 3.2 mmol/L (3.5-5.1); Protein, Total 5.2 g/dL (5.8-8.1); Sodium 141 mmol/L (136-145); Triglycerides 52 mg/dL (Less than 150)
[2021-07-26] MEDS ORDERED: Potassium Chloride 40 MEQ in Premix Bag 1 BAG IVPB SCH (06:24)
[2021-07-26] MEDS ORDERED: Magnesium 2 GM/50 ML 4 GM in Premix Bag 1 BAG IVPB SCH (06:30)
[2021-07-26] MEDS: Sodium Chloride 0.9% 1,000 ML IV SCH ×2 (06:55→10:59)
[2021-07-26] MEDS ORDERED: Potassium Chloride 20 MEQ in Premix Bag 1 BAG IVPB SCH (07:30)
[2021-07-26] MEDS: Magnesium 2 GM/50 ML 2 GM in Premix Bag 1 BAG IVPB SCH ×3 (09:42→15:11)
[2021-07-26] MEDS ORDERED: Sodium Bicarbonate 2.5 MEQ/5 ML VIAL ONE (09:43)
[2021-07-26] MEDS ORDERED: Lidocaine 1% PF 5 ML VIAL ONE (09:43)
[2021-07-26] MEDS: Potassium Chloride 20 MEQ in Premix Bag 1 BAG IVPB SCH ×4 (10:59→19:57)
[2021-07-26 11:43] LABS: Hemoglobin A1c 5.9 % (4.0-6.0)
[2021-07-26] MEDS ORDERED: Furosemide 40 MG TAB PO PRN (12:26)
[2021-07-26] MEDS: Pantoprazole 40 MG VIAL IVP SCH (12:29)
[2021-07-26] MEDS ORDERED: Nicotine 21 MG PATCH TD SCH (12:30)
[2021-07-26] MEDS ORDERED: HYDROmorphone 0.5 MG/0.5 ML SYRINGE SLOW IVP SCH (13:00)
[2021-07-26] MEDS ORDERED: Electrolyte Replacement Protocol FS PRN (13:15)
[2021-07-26] MEDS: oxyCODONE 5 MG TAB PO PRN ×2 (13:32→20:34)
[2021-07-26] MEDS ORDERED: Magnesium 2 GM/50 ML 2 GM in Premix Bag 1 BAG IVPB SCH (15:00)
[2021-07-26] MEDS ORDERED: Multivitamins, Adult 10 ML, TRACE ELEMENT CONCENTRATE 1 ML in D15W-AA 5% w/o Lytes 2,00... IV SCH (17:00)
[2021-07-26] MEDS ORDERED: Pancrelipase DR 12,000 1 CAP PO SCH (17:00)
[2021-07-26] MEDS ORDERED: Acetaminophen 325 MG TAB PO PRN (17:02)
[2021-07-26 20:12] VITALS: BP 140/71; TEMP 98.2
[2021-07-26] MEDS ORDERED: traZODone HCl 50 MG TAB PO SCH (21:00)
[2021-07-26] MEDS ORDERED: Topiramate 25 MG TAB PO SCH (21:00)
[2021-07-26] MEDS ORDERED: Prazosin HCl 1 MG CAP PO SCH (21:00)
[2021-07-26] MEDS ORDERED: Zolpidem Tartrate 5 MG TAB PO SCH (21:00)
[2021-07-27] MEDS ORDERED: Loratadine 10 MG TAB PO SCH ×2 (09:00)
== END 2021-07-26 20:35 | disposition short-term general hospital (02) | DRG 919 ==
LOC: CSHERS 10:43 → CSHTELE 17:14
PROVIDERS: ADMIT Family Medicine; ATTEND Family Medicine
PROC: 30233N1 Transfusion of Nonautologous Red Blood Cells into Peripheral Vein, Percutaneous Approach (ICD-10-PCS; 2021-07-24)
PROC: 0DJ08ZZ Inspection of Upper Intestinal Tract, Via Natural or Artificial Opening Endoscopic (ICD-10-PCS; principal; 2021-07-25)
PROC: 02HV33Z Insertion of Infusion Device into Superior Vena Cava, Percutaneous Approach (ICD-10-PCS; 2021-07-26)
PROC: B5181ZA Fluoroscopy of Superior Vena Cava using Low Osmolar Contrast, Guidance (ICD-10-PCS; 2021-07-26)
PROC: B548ZZA Ultrasonography of Superior Vena Cava, Guidance (ICD-10-PCS; 2021-07-26)
DX: T85.898A Other specified complication of other internal prosthetic devices, implants and grafts, initial encounter (principal); K83.1 Obstruction of bile duct; I81 Portal vein thrombosis; K31.1 Adult hypertrophic pyloric stenosis; K31.5 Obstruction of duodenum; K86.1 Other chronic pancreatitis; R18.8 Other ascites; K76.6 Portal hypertension; I82.890 Acute embolism and thrombosis of other specified veins; E46 Unspecified protein-calorie malnutrition; Z68.1 Body mass index [BMI] 19.9 or less, adult; Z20.822 Contact with and (suspected) exposure to COVID-19; R16.1 Splenomegaly, not elsewhere classified; D50.0 Iron deficiency anemia secondary to blood loss (chronic); E78.5 Hyperlipidemia, unspecified; I10 Essential (primary) hypertension; E11.9 Type 2 diabetes mellitus without complications; I25.10 Atherosclerotic heart disease of native coronary artery without angina pectoris; K25.7 Chronic gastric ulcer without hemorrhage or perforation; K74.60 Unspecified cirrhosis of liver; G47.00 Insomnia, unspecified; F43.10 Post-traumatic stress disorder, unspecified; Y83.1 Surgical operation with implant of artificial internal device as the cause of abnormal reaction of the patient, or of later complication, without mention of misadventure at the time of the procedure; F17.210 Nicotine dependence, cigarettes, uncomplicated; Z88.0 Allergy status to penicillin; Z79.4 Long term (current) use of insulin; Z79.899 Other long term (current) drug therapy; I25.2 Old myocardial infarction; Z95.5 Presence of coronary angioplasty implant and graft; Z90.49 Acquired absence of other specified parts of digestive tract; Z98.41 Cataract extraction status, right eye
CPT/HCPCS: 36415; 36416; 36430; 36569; 74018; 74177; 76705; 80053; 80061; 81003; 82274; 83036; 83690; 83735; 84100; 85025; 85610; 85730; 86850; 86900; 86901; 96374; 96375; 96376; C1751; C9113; J1170; J2060; J2270; J2405; J2550; J3010; J3475; J3480; J7050; J7070; P9016; U0002

== ENCOUNTER 2021-08-17 14:08 | Emergency (ER) | payer OTHER, MEDICAID ==
[2021-08-17 14:52] LABS: #Basophils 0.1 10x3/uL (0.0-0.2); #Eosinphils 0.1 10x3/uL (0.0-0.5); #Monocytes 0.3 10x3/uL (0.0-1.1); #Neutrophils 3.3 10x3/uL (1.5-8.4); %Basophils 1.3 % (0.0-2.0); %Eosinophils 2.2 % (0.0-6.0); %Lymphocytes 17.4 % (18.0-47.0); %Monocytes 7.1 % (0.0-10.0); %Neutrophils 71.6 % (40.0-75.0); Hemoglobin 8.2 g/dL (13.5-17.5); Mean Corpuscular HGB CONC 29.6 g/dL (32.0-36.0); Mean Corpuscular Hemoglobin 25.2 pg (27.0-33.0); Mean Corpuscular Volume 85.2 fl (81.2-95.1); Mean Platelet Volume 9.9 fl (7.4-10.4); Platelet Count 143 10x3/uL (150-450); RBC Distribution Width 16.4 % (11.5-14.5); Red Blood Cell (RBC) Count 3.25 10x6/uL (4.32-5.72); White Blood Cell (WBC) Count 4.7 10x3/uL (3.5-10.5)
[2021-08-17 15:03] LABS: PTT 25.9 sec (22.0-33.0); Prothrombin Time 11.5 sec (9.5-12.1)
[2021-08-17 15:12] LABS: ALT (SGPT) 39 U/L (8-55); AST (SGOT) 38 U/L (5-34); Albumin 3.2 g/dL (3.4-4.8); Alkaline Phosphatase 582 U/L (40-110); Anion Gap 13 mmol/L (10-20); BUN (Urea Nitrogen) 24 mg/dL (8.4-25.7); Bilirubin, Total 0.3 mg/dL (0.2-1.2); CK (CPK) 25 U/L (30-200); Calc. Creatinine Clearance 0 mL/min (70-130); Calcium 8.7 mg/dL (7.8-10.44); Carbon Dioxide 26 mmol/L (23-31); Chloride 105 mmol/L (98-107); Globulin 4.2 g/dL (2.4-3.5); Glucose 430 mg/dL (80-115); Lipase 50 U/L (8-78); Potassium 4.7 mmol/L (3.5-5.1); Protein, Total 7.4 g/dL (5.8-8.1); Sodium 139 mmol/L (136-145)
[2021-08-17] MEDS ORDERED: Ketorolac Tromethamine 30 MG/ML VIAL ONE (15:30)
[2021-08-17] MEDS ORDERED: Insulin Regular 300 UNITS/3 ML VIAL ONE (15:31)
[2021-08-17 15:34] LABS: Anisocytosis SLIGHT = 6-15 cells (100X) (0-5/hpf); Hypochromia SLIGHT = 6-15 cells (100X) (0-5/hpf); Microcytosis SLIGHT = 6-15 cells (100X) (0-5/hpf); Ovalocytes SLIGHT = 2-5 cells (100X) (0-1/hpf); Platelet Morphology Comment Appears Decreased
[2021-08-17] MEDS ORDERED: Fentanyl 100 MCG/2 ML VIAL ONE (16:46)
== END 2021-08-17 17:05 | disposition home or self-care (01) ==
LOC: CSHERS 14:08
DX: D64.9 Anemia, unspecified (principal); K70.30 Alcoholic cirrhosis of liver without ascites; E11.65 Type 2 diabetes mellitus with hyperglycemia; I25.2 Old myocardial infarction; I25.10 Atherosclerotic heart disease of native coronary artery without angina pectoris; F17.210 Nicotine dependence, cigarettes, uncomplicated
CPT/HCPCS: 36415; 36416; 80053; 82140; 82550; 83605; 83690; 84484; 85025; 85610; 85730; 93005; 96374; 96375; J1815; J1885; J3010